=== PATIENT | female | born 1970 ===

== ENCOUNTER 2018-07-13 07:44 | Day surgery (SDC) | payer OTHER ==
[~2018-07-13] VITALS: Ht 165.1 cm; Wt 86.2 kg
[2018-07-13] VITALS (11 sets, daily range): BP systolic 109–121; BP diastolic 63–77
--- NOTE | 2018-07-13 08:33 | Short Stay Surgery H&P ---
History of Present Illness History of Present Illness Chief Complaint abdominal pains and GERDs, regurgitation HPI Kelsea Juan is a 48 year old female who was admitted on for GERD/abdominal pains Patient History Allergies: Coded Allergies: PENICILLINS (Verified Allergy, Severe, 07/13/18) SWELLING PAST MEDICAL HISTORY: (1) Hypertension (2) Hyperlipidemia Past Surgeries: (1) H/O breast augmentation (2) Lumbar disc disease (3) Status post Review of Systems Cardiovascular: Reports: hypertension Respiratory: Reports: no symptoms Skeletal: Reports: trauma Gastrointestinal: Reports: gastro esophageal reflux disease Genitourinary: Reports: no symptoms Neurologic: Reports: no symptoms Endocrine: Reports: no symptoms Hematologic: Reports: no symptoms Physical Exam Labs Laboratory Tests Test 07/13/18 08:00 Urine HCG, Qualitative Pending Skin: normal HENT: normal Heart: normal Lungs: normal Abdomen: abnormal Extremities: normal Genitourinary: normal Plan Plan of Care Upper GI endoscopy and gastric biopsy Preop Interventions None. Summary of Findings See the reports Attestation Are the patient's medical conditions optimized for surgery? Attestation Response: yes Los Diop MD Jul 13, 2018 08:33
--- NOTE | 2018-07-13 08:34 | Pre-Procedure Note/Attestation ---
Pre-Procedure Note/Attestation Complete Prior to Procedure Planned Procedure: left Procedure Narrative: Examination of the upper GI tract via endoscopy and obtaining biopsy from the stomach Indications for Procedure Pre-Operative Diagnosis: R/O Peptic ulcer/gastritis/esophagitis Attestation I attest that I discussed the nature of the procedure; its benefits; risks and complications; and alternatives (and the risks and benefits of such alternatives ), prior to the procedure, with the patient (or the patient's legal retail representative). I attest that, if there was a reasonable possibility of needing a blood transfusion, the patient (or the patient's legal retail representative) was given the [facility] standardized written summary, pursuant to the Ethan Nguyen Blood Safety Act ([place] Health and Safety Code # 1645, as amended). I attest that I re-evaluated the patient just prior to the surgery and that there has been no change in the patient's H&P, except as documented below: Los Diop MD Jul 13, 2018 08:34
[2018-07-13] MEDS ORDERED: NORMODYNE300 MG ORAL (08:36)
[2018-07-13] MEDS ORDERED: MORPHABOND PO (08:36)
[2018-07-13] MEDS ORDERED: NEURONTIN400 MG ORAL (08:36)
[2018-07-13] MEDS ORDERED: NEXIUM40 MG ORAL (08:36)
[2018-07-13] MEDS ORDERED: INDOMETHACIN50 MG PO (08:36)
[2018-07-13] MEDS ORDERED: AMITRIPTYLINE75 MG ORAL (08:36)
[2018-07-13] MEDS ORDERED: PERCOCET 10-321 EAC1 PO (08:36)
[2018-07-13] MEDS ORDERED: PRAVASTATIN SOD10 M1 ORAL (08:36)
[2018-07-13] MEDS ORDERED: PROCARDIA10 MG ORAL (08:36)
[2018-07-13] MEDS ORDERED: BACLOFEN10 MG ORAL (08:36)
[2018-07-13] MEDS ORDERED: AIMOVIG AU70 MG/1 ML SQ (08:37)
--- NOTE | 2018-07-13 08:58 | Anethesia Preoperative Eval ---
Anesthesia Pre-op PMH/ROS General Date of Evaluation: Jul 13, 2018 Time of Evaluation: 08:40 Anesthesiologist: Ignacio ASA Score: ASA 1 Mallampati Score Class I : Soft palate, uvula, fauces, pillars visible Class II: Soft palate, uvula, fauces visible Class III: Soft palate, base of uvula visible Class IV: Only hard plate visible Mallampati Classification: Class II Surgeon: Jadon Diagnosis: GERD Surgical Procedure: EGD Anesthesia History: none Family History: no anesthesia problems Allergies: Coded Allergies: PENICILLINS (Verified Allergy, Severe, 07/13/18) SWELLING Medications: see eMAR Patient NPO?: Yes NPO Date: Jul 12, 2018 NPO Time: 21:00 Past Medical History Cardiovascular: Reports: HTN, other - hyperlipids Pulmonary: Denies: asthma, COPD, ABNER, other Gastrointestinal/Genitourinary: Reports: GERD, other - kidney stones Neurologic/Psychiatric: Denies: dementia, CVA, depression/anxiety, TIA, other Endocrine: Denies: DM, hypothyroidism, steroids, other HEENT: Denies: cataract (L), cataract (R), glaucoma, [place] other Hematology/Immune: Denies: anemia, DVT, bleeding disorder, other Musculoskeletal/Integumentary: Reports: other - back pain Other: obesity PSxH Narrative: , hx of breast augmentation Anesthesia Pre-op Phys. Exam Physician Exam Last Vital Signs Date Time Temp Pulse Resp B/P (MAP) Pulse Ox O2 Delivery O2 Flow Rate FiO2 07/13/18 08:25 97.0 66 20 121/77 96 Room Air Constitutional: NAD Neurologic: CN 2-12 intact Cardiovascular: RRR Respiratory: CTA Gastrointestinal: S/NT/ND Airway Exam Mallampati Score: Class II MO: full ROM: full Teeth: intact Dentures: no upper, no lower Anesthesia Pre-op A/P Labs Urine Test Test 07/13/18 08:00 Urine HCG, Qualitative Negative (NEGATIVE) Studies Pre-op Studies: EKG Risk Assessment & Plan Assessment: A&Ox4 Plan: MAC Status Change Before Surgery: No Pre-Antibiotics Given Within 1 Hr of Incision: No Norma Pierre CRNA Jul 13, 2018 08:58
--- NOTE | 2018-07-13 08:59 | Immediate Post-Op Evaluation ---
Immediate Post-Op Evalulation Immediate Post-Op Evalulation Procedure: EGD Date of Evaluation: Jul 13, 2018 Time of Evaluation: 09:07 IV Fluids: LR 450 ml Blood Products: 0 Estimated Blood Loss: 0 Urinary Output: 0 Blood Pressure Systolic: 116 Blood Pressure Diastolic: 70 Pulse Rate: 71 Respiratory Rate: 20 O2 Sat by Pulse Oximetry: 100 Temperature (Fahrenheit): 97.1 Pain Score (1-10): 0 Nausea: No Vomiting: No Complications none Patient Status: awake, reacts, patent Hydration Status: adequate Given Within 1 Hr of Incision: No - none per surgeon Norma Pierre CRNA Jul 13, 2018 08:59
[2018-07-13] MEDS ORDERED: Lidocaine 1% MPF 10mg/ml 5ml ONE (09:00)
[2018-07-13] MEDS ORDERED: Midazolam 2mg/2ml Inj ONE (09:00)
[2018-07-13] MEDS ORDERED: Propofol 200mg/20ml IV ONE (09:00)
[2018-07-13] MEDS ORDERED: LR 1000ml ONE (09:00)
--- NOTE | 2018-07-13 09:01 | Endoscopy Procedure Note ---
Endoscopy Procedure Note General Indication for Procedure: Abdominal pains/Heartburn Procedures Performed: EGD - Mild genralized gastriitis with bile in the stomach (duodeno-gastric bile reflux, R/O bile gastritis. Biopsies obtained from prepyloric and gastric body. Specimen: yes Pt Tolerated Procedure Well: Yes Estimated Blood Loss: none Anesthesia Anesthesiologist: Ms. Ignacio CRNA Anesthesia: moderate sedation Medications Medication Given: see anesthesia record Inserted Devices Implant(s) used?: No Quality Quality of Bowel Preparation: Excellent GI Core Measures 50 yrs or older w/o bx or poly: Not Applicable 10yrs. F/U not recommended: Not Applicable If not recommended, why?: Med reason:<3 yrs.: System Reason:<3 yrs.: Los Diop MD Jul 13, 2018 09:01
--- NOTE | 2018-07-13 09:02 | Discharge Instructions ---
Discharge Instructions Discharge Instructions Follow up with: Visit the doctor in office after 2 weeks. For Congestive Heart Failure Reminder Report to your physician any weight gain of 5 pounds or more in one week. Los Diop MD Jul 13, 2018 09:02
--- NOTE | 2018-07-13 09:22 | 48 Hour Post Anesthesia Eval ---
Post Anesthesia Evaluation Procedure: EGD Date of Evaluation: Jul 13, 2018 Time of Evaluation: 10:38 Blood Pressure Systolic: 109 0: 65 Pulse Rate: 66 Respiratory Rate: 19 Temperature (Fahrenheit): 97.4 O2 Sat by Pulse Oximetry: 96 Airway: patent Nausea: No Vomiting: No Pain Intensity: 0 Hydration Status: adequate Cardiopulmonary Status: WNL Mental Status/LOC: patient returned to baseline Post-Anesthesia Complications: none Follow-up care needed: patient intructions given Norma Pierre CRNA Jul 13, 2018 09:22
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
--- NOTE | 2018-07-13 15:15 | Operative Note - Dictated ---
DATE OF OPERATION: 07/13/2018 SURGEON: Los Diop M.D. PROCEDURE: Esophagogastroduodenoscopy with biopsy. PREOPERATIVE DIAGNOSES: 1. Abdominal pain. 2. Gastroesophageal acid reflux, rule out peptic ulcer disease, esophagitis, and gastritis. POSTOPERATIVE DIAGNOSIS: Mild generalized gastritis with evidence of bile in the stomach consistent with duodenal gastric bile reflux, rule out bile gastritis. Biopsy was taken from pre-pyloric area and gastric body. MEDICATION USED: Per Ms. Ignacio CRNA. INSTRUMENT: GIF Olympus upper GI video endoscope. DESCRIPTION OF PROCEDURE: The patient after arriving in the endoscopy unit, was told about risks and benefits of the procedure, which she accepted and signed informed consent. At this point, she was put on the left lateral decubitus position. After adequate IV sedation, the scope was gently passed through the cricopharyngeal area, was lodged into the upper esophagus and gradually advanced towards gastroesophageal junction. The entire length of the esophagus looked normal and there was no any evidence of inflammatory process, ulceration, stricture, tumors, etc. GE junction also looked completely normal and no Rivrea's or hiatal hernia noted. The scope at this time was advanced into the stomach. Gastric cavity was distended with insufflation of air. At this point, it revealed that there was moderate amount of bile in the stomach consistent with duodenal gastric bile reflux. Underlying mucosa revealed evidence of mild inflammatory process with erythema in the gastric body as well as antral area. There were no ulcers, tumors, bleeding sites, etc. A retroflexion maneuver was also performed, which revealed no particular findings except what is stated earlier in the GE junction. Finally, the scope was gradually advanced and the amount of bile, which was contained in the stomach was suctioned. Underlying mucosa was re-examined again and at this point, one biopsy from gastric body and the other one from prepyloric area and the antrum were obtained. Finally, the scope was passed through normal looking pylorus. First and second portion of duodenum were also examined, which looked completely normal. Finally, the scope was pulled out and procedure was terminated. The patient tolerated the procedure well and left the endoscopy room in a good condition. Los Diop M.D. DR: DUARTE JOB#: [id number] CC:
== END 2018-07-13 10:30 | disposition home or self-care (01) ==
LOC: GAS 07:44
DX: K29.70 Gastritis, unspecified, without bleeding (principal); K21.9 Gastro-esophageal reflux disease without esophagitis; I10 Essential (primary) hypertension; E78.5 Hyperlipidemia, unspecified; E78.00 Pure hypercholesterolemia, unspecified; E66.9 Obesity, unspecified; M51.86 Other intervertebral disc disorders, lumbar region; Z88.0 Allergy status to penicillin; Z87.442 Personal history of urinary calculi
CPT/HCPCS: 43239; 81025; J2250; J2704; 94003; 94150